=== PATIENT | female | born 1955 | race Caucasian/White ===

== ENCOUNTER 2019-09-24 09:25 | Day surgery (SDC) | payer MEDICARE, OTHER ==
[~2019-09-24] VITALS: Ht 157.5 cm; Wt 78.6 kg
--- NOTE | ~2019-09-24 | HP ---
PATIENT: AGUSTÍN WHITT MEDICAL RECORD: [id number] ACCOUNT: [id number] LOCATION:[facility] : 53 ADMISSION DATE: 09/24/19 PCP: NATASHA PARKER MD HISTORY AND PHYSICAL EXAMINATION CHIEF COMPLAINT: Colon polyps. HISTORY OF PRESENT ILLNESS: The patient is here due to history of colon polyps. The patient was noted to have a flat hepatic flexure polyp, which was tattooed. She has some trouble with her memory. The polyp at the hepatic flexure was a tubular adenoma. The risks, possible complications, and alternatives to colonoscopy with polypectomy were explained to the patient. She elects to proceed. SOCIAL HISTORY: She has smoked half pack of cigarettes per day for 40 years. PAST MEDICAL AND SURGICAL HISTORY: Congestive heart failure, seizures, Parkinson's with dementia, noninsulin-dependent diabetes mellitus, bipolar as well as PTSD, history of cholecystectomy, and history of hysterectomy. PHYSICAL EXAMINATION: GENERAL: The patient does not appear acutely ill. She does not appear chronically ill. VITAL SIGNS: Reviewed. EARS: External ears appear normal. EYES: Extraocular movements are intact. NECK: Trachea is midline. CHEST: No intercostal retractions. PULMONARY: Nonlabored, no stridor. IMPRESSION: History of hepatic flexure with flat polyp, which was a tubular adenoma. PLAN: Colonoscopy with polypectomy. TRANSINT:[id number] Voice Confirmation ID: [id number] DOCUMENT ID: [id number] GIRISH REED MD CC: NATASHA PARKER MD and FRED WHEATLEY DO [id number] DICTATION DATE: 09/24/19 1223 VIDEO MANAGER: 09/24/19 1243 REG [facility] [address] [place] [address]
--- NOTE | ~2019-09-24 | OP ---
PATIENT NAME: AGUSTÍN WHITT MEDICAL RECORD: [id number] :53 LOCATION:D.[facility] ADMISSION DATE: SURGEON: GIRISH REED MD DATE OF OPERATION: 09/24/2019 PREOPERATIVE DIAGNOSIS: Flat hepatic flexure polyp, tattooed. POSTOPERATIVE DIAGNOSES: 1. Flat hepatic flexure polyp, tattooed. 2. Secondary ascending colon adenomatous-appearing polyp that was a 6-mm sessile polyp. PROCEDURES: 1. Total colonoscopy to cecum. 2. Hot biopsy forceps polypectomy times 1. 3. Polypectomy of the hepatic flexure polyp utilizing the argon plasma college advisor. SURGEON: Girish Reed MD GROUND MIXER: None. BLOOD LOSS: Minimal. ANESTHESIA: IV sedation. COMPLICATIONS: None. The risks, possible complications, and alternatives to the procedure were explained to the patient. She elects to proceed. The discussion specifically included, but was not limited to, bleeding requiring emergency reoperation, intestinal injury, perforation. OPERATIVE COURSE: The patient was conveyed to the endoscopy suite electively on 09/24/2019. IV sedation was induced by the anesthesia staff. The patient was placed in the Nunn position. A digital rectal examination was performed and was normal. A colonoscope was inserted through the anus. It was advanced with difficulty to the cecum. The prep was adequate. I slowly withdrew the endoscope. The pullback was greater than a 20-minute pullback. I utilized normal imaging as well as narrow band imaging as I pulled back, dragging the folds. A hot biopsy forceps polypectomy was performed in the ascending colon. I then noted both tattoos. In an area between the tattoos at 6 o'clock, there was a flat polyp. I advanced a sclerotherapy needle. A submucosal injection of epinephrine was performed for a post-procedural hemostasis. I then utilized the same sclerotherapy needle and performed a submucosal injection of Eleview. I then performed some cold biopsies of the polyp. I then utilizing the argon plasma college advisor with the right colon setting in the forced mode went about ablating any residual polypoid tissue. The endoscope was then withdrawn under direct vision. A retroflexed view was obtained in the rectum. I then un-retroflexed the scope and removed it under direct vision. OPERATIVE REPORT [id number] AGUSTÍN WHITT I will see the patient in my office in 2-3 weeks. Due to the location and size of the polyp, I am going to recommend another surveillance colonoscopy in 1 year. TRANSINT:[id number] Voice Confirmation ID: [id number] DOCUMENT ID: [id number] GIRISH REED MD CC: NATASHA PARKER MD and FRED WHEATLEY DO [id number] DICTATION DATE: 09/24/19 1329 TRUCK SHOP SUPERVISOR: 09/24/19 1427 REG [facility] [address] [place] [address]
[2019-09-24 10:13] LABS: CALC OSMOLALITY 286 mosm/kg (275-300); CALCIUM 9.3 mg/dL (8.5-10.1); CARBON DIOXIDE 27.5 mmol/L (21.0-32.0); CHLORIDE - SERUM 105 mmol/L (98-107); CREATININE - SERUM 0.8 mg/dL (0.6-1.3); GLUCOSE 105 mg/dL (74-106); SODIUM 144 mmol/L (136-145); UREA NITROGEN 13 mg/dL (7-18); eGFR NON AFRICAN AMERICAN 76 mL/min (90-120)
[2019-09-24 10:18] LABS: HEMATOCRIT 39.8 % (36.0-48.0); HEMOGLOBIN 12.7 g/dL (12-16); MCH 29.8 pg (26.0-34.0); MCHC 31.9 g/dL (31.0-37.0); MCV 93.4 fL (80.0-100.0); MEAN PLATELET VOLUME 10.3 fL (7.4-10.4); RBC 4.26 10x6/uL (4.00-5.40); RDW 15.1 % (11.5-14.5); WBC 6.1 10x3/uL (4.8-10.8)
[2019-09-24] MEDS ORDERED: ZANAFLEX4 MG PO (10:30)
[2019-09-24] MEDS ORDERED: ASPIRIN81 MG PO (10:30)
[2019-09-24] MEDS ORDERED: LIPITOR20 MG PO (10:31)
[2019-09-24] MEDS ORDERED: BENZTROPINE MESY2 MG PO (10:32)
[2019-09-24] MEDS ORDERED: DEPAKOTE250 MG PO (10:33)
[2019-09-24] MEDS ORDERED: FENOFIBRATE134 MG PO (10:33)
[2019-09-24] MEDS ORDERED: PROZAC20 MG PO (10:33)
[2019-09-24] MEDS ORDERED: LASIX20 MG PO (10:34)
[2019-09-24] MEDS ORDERED: GABAPENTIN300 MG PO (10:34)
[2019-09-24] MEDS ORDERED: KEPPRA500 MG PO (10:36)
[2019-09-24] MEDS ORDERED: ZYPREXA5 MG PO (10:37)
[2019-09-24] MEDS ORDERED: GLUCOPHAGE1000 MG PO (10:37)
[2019-09-24] MEDS ORDERED: POTASSIUM CHLO10 ME1 PO (10:38)
[2019-09-24] MEDS ORDERED: PROTONIX40 MG PO (10:38)
[2019-09-24] MEDS ORDERED: RESTORIL15 MG PO (10:39)
[2019-09-24 10:48] VITALS: BP 135/59; Ht 157.5 cm; Wt 78.6 kg
--- NOTE | 2019-09-24 13:54 | NUR ---
1330 DR. DEREK ESTES. 1335 XRAY NOTIFIED OF ROOM NUMBER 1345 UP TO BR PASSING FLATUS, WARM BLANKET SUPPLIED 1350 XRAY HERE
--- NOTE | 2019-09-24 14:08 | NUR ---
1405 FL DIET SERVED. DISCUSSED NSAIDS, NONE FOR 10 TO 14 DAYS.
== END 2019-09-24 15:20 | disposition home or self-care (01) ==
LOC: D.OPS 09:25
PROVIDERS: Anesthesiology; ATTEND Surgery
DX: K63.5 Polyp of colon (principal)